=== PATIENT | female | born 2000 | race Caucasian/White ===

== ENCOUNTER 2022-10-20 09:04 | Outpatient (CLI) | payer BC, SELFPAY ==
--- NOTE | ~2022-10-20 | US_ITS ---
Pelvic ultrasound. Clinical History: Menorrhagia Technique: Realtime transabdominal and transvaginal scanning of the pelvis was performed. Color flow Doppler and Doppler spectral analysis were performed. Findings: The uterus is retroverted. The endometrial stripe has a thickness of 3 mm. No focal mass i s identified. The right ovary measures 4.2 x 1.5 x 1.6 cm. No significant right ovarian or adnexal mass is seen. The left ovary measures 1.6 x 3.6 x 1.7 cm. No significant left ovarian or adnexal mass is seen. Vascular flow present in both ovaries on Doppler spectral analysis. There is trace free fluid in the pelvis. Impression: Trace free fluid, otherwise unremarkable exam. Reviewed, dictated and finalized at location . Impression: Trace free fluid, otherwise unremarkable exam.
== END 2022-10-20 09:05 | disposition home or self-care (01) ==
PROVIDERS: Visit Provider Nurse Practitioner Family
DX: N92.0 Excessive and frequent menstruation with regular cycle (principal)
CPT/HCPCS: 76830; 76856